=== PATIENT | female | born 2000 | race Caucasian/White ===

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

== ENCOUNTER → 2020-04-30 | Outpatient (CLI) | payer BC ==
[~2020-04-30] MED LIST: RT-ALBUTEROL SULF 2.5 MG/3 ML PRE-MIX VIAL INH ONE
== END ==
LOC: RT 13:00
PROVIDERS: ATTEND Nurse Practitioner Family
DX: J45.909 Unspecified asthma, uncomplicated (principal)
CPT/HCPCS: 94060; 94726; 94729

== ENCOUNTER 2020-10-24 15:22 | Emergency (ER) | payer BC ==
[~2020-10-24] VITALS: Ht 165.3 cm; Wt 84.5 kg
--- NOTE | 2020-10-24 16:01 | ED Upper Extremity ---
General Stated Complaint: R THUMB SWOLLEN Source: patient Exam Limitations: no limitations History of Present Illness Date Seen by Provider: Oct 24, 2020 Time Seen by Provider: 15:56 Initial Comments This well-appearing 19-year-old female who presents to ER with complaints of right thumb pain and swelling. States she smashed her finger in a car door yesterday and has had pain and swelling in her symptoms since. No other injuries reported. Allergies and Home Medications Allergies Coded Allergies: No Known Drug Allergies (Unverified , 07/13/16) Patient Home Medication List Home Medication List Reviewed: Yes Review of Systems Constitutional: no symptoms reported EENTM: no symptoms reported Respiratory: no symptoms reported Cardiovascular: no symptoms reported Gastrointestinal: no symptoms reported Genitourinary: no symptoms reported Musculoskeletal: see HPI Skin: other (black nail bed ) Psychiatric/Neurological: No Symptoms Reported Past Eoaciqs-Cmaree-Crvzgg Hx Patient Social History Type Used: Electronic/Vapor 2nd Hand Smoke Exposure: Yes Recent Hopitalizations: No Seasonal Allergies Seasonal Allergies: No Past Medical History Surgeries: No Respiratory: Yes Asthma Physical Exam Vital Signs Vital Signs - First Documented 10/24/20 15:53 Temp 36.9 Pulse 78 Resp 18 B/P (MAP) 120/76 (91) Pulse Ox 99 O2 Delivery Room Air Capillary Refill : Height, Weight, BMI Height: 5'4.00" Weight: 190lbs. oz. 86.705395dq; 28.12 BMI Method:Stated General Appearance: WD/WN, no apparent distress HEENT: PERRL/EOMI, normal ENT inspection Neck: full range of motion, normal inspection Cardiovascular: regular rate, rhythm, no murmur Respiratory: lungs clear, normal breath sounds Shoulder: normal inspection, non-tender, no evidence of injury, normal ROM Elbow/Forearm: normal inspection, non-tender, no evidence of injury, normal ROM Wrist: Yes normal inspection, Yes non-tender, Yes no evidence of injury, Yes normal ROM Hand: Right (thumb swelling, with noted subungal hematoma ) Neurologic/Psychiatric: alert, normal mood/affect, oriented x 3 Skin: normal color, warm/dry Procedures/Interventions Suture Size: 5-0 Nail Trepanation : Method of Drainage: 18 gauge needle Sterile Dressing Applied: Yes Finger Splint: No Progress X-ray of right thumb shows no acute fractures. Progress/Results/Core Measures Results/Orders My Orders Orders - GEETA NEWELL APRN Finger(S) (10/24/20 16:05) Vital Signs/I&O 10/24/20 10/24/20 15:53 16:30 Temp 36.9 36.9 Pulse 78 78 Resp 18 18 B/P (MAP) 120/76 (91) 120/76 (91) Pulse Ox 99 99 O2 Delivery Room Air Diagnostic Imaging Diagonstic Imaging: Xray Plain Films/CT/US/NM/MRI: other (right thumb ) Comments NAME: [facility] REC#: [id number] PT STATUS: REG ER : 2000 PHYSICIAN: GEETA NEWELL APRN ADMIT DATE: 10/24/20/ER Draft Date of Exam:10/24/20 FINGER(S) EXAMINATION: Right hand radiographs, single view. Right thumb, 2 additional views. COMPARISON: None. HISTORY: 19-year-old female, smash injury of the right thumb in car door. FINDINGS: There is no identified acute fracture. There is no subluxation or dislocation. There is no radiopaque foreign body. IMPRESSION: No acute bony abnormality of the right thumb or identified at the level of the right hand. Dictated on workstation # [id number] Dict: 10/24/20 1619 Trans: 10/24/20 1622 [facility] [id number] Interpreted by: GREY SOL MD Electronically signed by: Reviewed: Reviewed by Me Departure Impression Primary Impression: Hematoma, subungual, thumb, right Disposition: 01 HOME, SELF-CARE Condition: Improved Departure-Patient Inst. Decision time for Depature: 16:26 Referrals: ALISON MARTIN DO (PCP/Family) Primary Care Physician Patient Instructions: Bruising Under the Nail Add. Discharge Instructions: Plan: 1. Discharge home. Keep finger clean and dry. Know that you may lose your fingernail. 2. May take Tylenol or Ibuprofen as needed for pain per package instructions. 3. Follow up with your primary care provider if your symptoms persist. 4. Return for any new or concerning symptoms. GEETA NEWELL APRN Oct 24, 2020 16:01
--- NOTE | 2020-10-24 16:23 | Diagnostic Imaging Report ---
EXAMINATION: Right hand radiographs, single view. Right thumb, 2 additional views. COMPARISON: None. HISTORY: 19-year-old female, smash injury of the right thumb in car door. FINDINGS: There is no identified acute fracture. There is no subluxation or dislocation. There is no radiopaque foreign body. IMPRESSION: No acute bony abnormality of the right thumb or identified at the level of the right hand. Dictated by: Dictated on workstation # [id number]
[2020-10-24 16:30] VITALS: BP 120/76
== END 2020-10-24 16:31 | disposition home or self-care (01) ==
LOC: EDUNIT# 15:22 → ER 15:24
DX: S60.011A Contusion of right thumb without damage to nail, initial encounter (principal); Z77.22 Contact with and (suspected) exposure to environmental tobacco smoke (acute) (chronic); W23.0XXA Caught, crushed, jammed, or pinched between moving objects, initial encounter
CPT/HCPCS: 73140

== ENCOUNTER → 2021-06-08 | Outpatient (CLI) | payer BC ==
--- NOTE | 2021-06-08 16:08 | Diagnostic Imaging Report ---
EXAMINATION: Chest 2 view. HISTORY: Asthma. COMPARISON: None available. FINDINGS: The lungs are clear without edema or pneumonia. No pleural effusion or pneumothorax. Heart size is normal. Skinfold projects over the left chest. IMPRESSION: Clear lungs. Dictated by: Dictated on workstation # [id number]
== END ==
LOC: RAD 14:20
PROVIDERS: ATTEND Nurse Practitioner Family
DX: J45.909 Unspecified asthma, uncomplicated (principal)
CPT/HCPCS: 71046

== ENCOUNTER 2021-12-16 23:30 | Emergency (ER) | payer BC, OTHER ==
[~2021-12-16] VITALS: Ht 165.1 cm; Wt 90.7 kg
--- NOTE | 2021-12-17 00:28 | ED Integumentary General ---
General Chief Complaint: Bite-Animal/Human/Insect Stated Complaint: CAT BITE,LEFT ARM Nursing Triage Note: TO ED VIA POV AND AMBULATORY TO FT3 WITH C/O SCRATCHES AND BITE TO LEFT ARM FROM STRAY CAT THAT GOT INTO HER HOUSE APPROX 1.5H [employer]. Source: patient Exam Limitations: no limitations History of Present Illness Date Seen by Provider: Dec 17, 2021 Time Seen by Provider: 00:22 Initial Comments Patient is a 21-year-old female who presents to the emergency department today with a chief complaint of a cat bite to the left wrist. Patient states that a stray cat got into her parents house, they had a cornered and it attacked her. She has multiple scratches to the left arm. She states she is not allergic to anything. She cannot recall her last menstrual cycle. She is on medications for anxiety. The bite happened approximately 2 hours ago. She is concerned about rabies. I did certified alcohol drug counselor her that there has not been a documented case of rabies and a domesticated animal in decades however she would prefer to undergo vaccination. She does live in [place] and is planning to go back there on Sunday. We will start the rabies vaccination series here today and then give her the order form for future vaccination. No other complaints of recent illness or injury. All other review of systems reviewed and negative except as stated. Timing/Duration: just prior to arrival Severity: mild Location: hands (left wrist) Associated Symptoms: denies symptoms Allergies and Home Medications Allergies Coded Allergies: No Known Drug Allergies (Unverified , 07/13/16) Patient Home Medication List Home Medication List Reviewed: Yes Review of Systems Review of Systems Constitutional: see HPI EENTM: no symptoms reported Respiratory: no symptoms reported Cardiovascular: no symptoms reported Gastrointestinal: no symptoms reported Genitourinary: no symptoms reported Musculoskeletal: no symptoms reported Skin: other (bite to left wrist and scratches to left forearm) Psychiatric/Neurological: No Symptoms Reported Past Wwaifuo-Nzucvn-Vuzzkk Hx Patient Social History Tobacco Use?: No Substance use?: No Alcohol Use?: No Seasonal Allergies Seasonal Allergies: No Past Medical History Surgeries: No Respiratory: Yes Asthma Physical Exam Vital Signs Vital Signs - First Documented 12/16/21 23:56 Temp 36.4 Pulse 74 Resp 16 B/P (MAP) 117/77 (90) Pulse Ox 100 O2 Delivery Room Air Capillary Refill : Less Than 3 Seconds General Appearance: WD/WN, no apparent distress Neck: normal inspection Cardiovascular: regular rate, rhythm Respiratory: lungs clear, normal breath sounds, no respiratory distress, no accessory muscle use Extremities: normal range of motion, non-tender Neurologic/Psychiatric: alert, normal mood/affect, oriented x 3 Skin: normal color, warm/dry, other (superficial scratches noted to the left forearm; 2 puncture wounds to the lateral aspect of the wrist; no active bleeding) Procedures/Interventions Suture Size: 5-0 Progress/Results/Core Measures Results/Orders My Orders Orders - AMY MARIE MD Wrist, Left, 2 Views (12/17/21 00:37) Urine Bedside (12/17/21 00:43) Vital Signs/I&O 12/16/21 23:56 Temp 36.4 Pulse 74 Resp 16 B/P (MAP) 117/77 (90) Pulse Ox 100 O2 Delivery Room Air Blood Pressure Mean: 90 Progress Progress Note : Time: 01:00 Progress Note Spoke with the patient about rabies vaccination. Advised that cats are more likely to carry rabies and dogs. It is difficult to know the local landscape as we cannot talk to local health department at this hour of the night. I did recommend that she start rabies vaccination however secondary to the unknown and the patient let me know that the cat would not be quarantined but because she and her family member killed the cat and buried it. She elects to wait until she can follow-up with her primary care provider next week when she gets back to [place]. I did warn her that it was better to start prophylaxis sooner rather than later and she still elects to hold off. We will start her on some antibiotics for the cat bite at this time. X-rays were reviewed, no evidence of foreign body/Teeth in the wound. I have given her return precautions. She verbalized understanding. All questions are sought and answered. Patient did also advise me she would be unable to get her antibiotics filled until sunday, due to money issues. I recommended she get them as soon as possible Departure Impression Primary Impression: Cat bite Qualified Codes: W55.01XA - Bitten by cat, initial encounter Disposition: HOME, SELF-CARE Condition: Stable Departure-Patient Inst. Decision time for Depature: 01:02 Referrals: NO,LOCAL PHYSICIAN (PCP/Family) Primary Care Physician Patient Instructions: Animal Bites ED Add. Discharge Instructions: Wash the wounds twice daily with soap and water. Monitor the wounds for signs of redness, swelling, drainage. We have started you on some antibiotics, please finish this course of antibiotics. You will need to have close follow-up with your primary care physician once you get back to [place] to discuss rabies prophylaxis. It is better to start the vaccination series sooner rather than later. Return to the emergency department for any new, concerning or emergent complaints. Scripts Amoxicillin/Potassium Clav (Amox Tr-K Clv 875-125 mg Tab) 1 Each Tablet 1 EACH PO BID for 7 Days, #14 TAB Prov: AMY MARIE MD 12/17/21 AMY MARIE MD Dec 17, 2021 00:28
[2021-12-17] MEDS ORDERED: AMOX1TAB12 PO (01:08)
[2021-12-17 01:13] VITALS: BP 115/76
--- NOTE | 2021-12-17 06:48 | Diagnostic Imaging Report ---
WRIST, LEFT, 2 VIEWS COMPARISON: None available. INDICATION: Wrist injury due to cat bite TECHNIQUE: PA and lateral views of the left wrist FINDINGS: No fracture or malalignment. No radiopaque foreign body. Joint spaces are well-maintained. IMPRESSION: 1. No radiopaque foreign body or acute fracture. Dictated by: Dictated on workstation # [id number]
== END 2021-12-17 01:13 | disposition home or self-care (01) ==
LOC: EDUNIT# 23:30 → ER 23:34
DX: S61.552A Open bite of left wrist, initial encounter (principal); S51.852A Open bite of left forearm, initial encounter; F41.9 Anxiety disorder, unspecified; W55.01XA Bitten by cat, initial encounter
CPT/HCPCS: 73100; 84703